=== PATIENT | male | born 1955 | race Caucasian/White ===

== ENCOUNTER 2020-10-12 09:58 | Outpatient (REF) | payer MEDICARE, SELFPAY | END 2020-10-12 09:59 | disposition home or self-care (01) | LOC: HO.LAB 09:58 | PROVIDERS: Visit Provider Internal Medicine | DX: Z20.828 Contact with and (suspected) exposure to other viral communicable diseases (principal) | CPT/HCPCS: C9803; U0003 ==

== ENCOUNTER → 2022-09-05 11:00 | Outpatient (BNVA) | payer MEDICARE, SELFPAY | PROVIDERS: PCP Internal Medicine; Visit Provider Nurse Practitioner Family | DX: Z01.818 Encounter for other preprocedural examination (principal) | CPT/HCPCS: 99202 ==

== ENCOUNTER 2023-01-24 06:56 | Day surgery (SDC) | payer BC, SELFPAY ==
[2023-01-18 15:10] VITALS: BMI 25.7
--- NOTE | 2023-01-23 11:59 | P.CONAN_ITS ---
Documented by User: Mildred Gold NP 01/23/23 11:59 HPI - Anesthesia Eval Consult details Narrative: 67yo M for Colonoscopy [facility] Past Medical History Medical History Diabetes Elevated cholesterol Family History Family History (Updated 09/05/22 @ 11:07 by Casey Eng) Mother Diabetes Surgical History Surgical History Hx of colonoscopy Social History Social History (Updated 09/05/22 @ 11:06 by Casey Eng) Household Members: Significant Other Alcohol intake: current Patient Tobacco Use Status: Never used Tobacco Meds Allergies Allergy/AdvReac Type Severity Reaction Status Date / Time No Known Allergies Allergy Verified 01/24/23 07:16 Home Medications Medication Instructions Recorded Confirmed Last Taken Type atorvastatin 10 mg tablet 10 mg PO DAILY 09/05/22 01/18/23 Unknown History empagliflozin 10 mg tablet 10 mg PO DAILY 09/05/22 01/18/23 Unknown History (Jardiance) flash glucose sensor (FreeStyle #1 ea 09/05/22 Unknown History Lavelle 2 Sensor kit) lisinopril 5 mg tablet 5 mg PO DAILY 09/05/22 01/18/23 Unknown History metformin 500 mg tablet 1,000 mg PO BID 09/05/22 01/18/23 Unknown History Exam Exam Date and Time: January 23, 2023 115 Height,Weight and Vital Signs: Height 6 ft Weight 86.183 kg Assessment and Plan Assessment Anesthesia Assessment: Chart Reviewed Documented by User: Brian Childers MD 01/24/23 16:22 [facility] Past Medical History Medical History Diabetes Elevated cholesterol Functional capacity: independent ambulation Family History Family History (Updated 09/05/22 @ 11:07 by Casey Eng) Mother Diabetes Family history of problems with anesthesia: No Surgical History Surgical History Hx of colonoscopy History of Problems with Anesthesia: No Social History Social History (Updated 09/05/22 @ 11:06 by Casey Eng) Household Members: Significant Other Alcohol intake: current Patient Tobacco Use Status: Never used Tobacco Meds Allergies Allergy/AdvReac Type Severity Reaction Status Date / Time No Known Allergies Allergy Verified 01/24/23 07:16 Home Medications Medication Instructions Recorded Confirmed Last Taken Type atorvastatin 10 mg tablet 10 mg PO DAILY 09/05/22 01/18/23 Unknown History empagliflozin 10 mg tablet 10 mg PO DAILY 09/05/22 01/18/23 Unknown History (Jardiance) flash glucose sensor (FreeStyle #1 ea 09/05/22 Unknown History Lavelle 2 Sensor kit) lisinopril 5 mg tablet 5 mg PO DAILY 09/05/22 01/18/23 Unknown History metformin 500 mg tablet 1,000 mg PO BID 09/05/22 01/18/23 Unknown History Exam Airway Mallampati Class: III TM Dist: >3cm Neck ROM: Full Loose/Missing/Broken Teeth: Yes (Left upper loose , upper front chipped) Heart: S1,S2 Lungs: b/l breath sounds Assessment and Plan Assessment Anesthesia Assessment: Anesthesia Plan Discussed Final Anesthetic Review Family History of Problems with Anesthesia: No History of Problems with Anesthesia: No NPO: Yes ASA Class: II Final Preanesthetic Review: Meds/Allgs Chart Reviewed, Consent Obtained/Reviewed and Anes Risks/Benef Reviewed Patient Risk: Intermediate Procedure Risk: Intermediate Anesthetic Plan Anesthetic Plan: MAC: Disposition: Standard PACU
[2023-01-24 07:45] VITALS: BP 120/77; PULSE 90; RESP 15; TEMP 36.3; O2SAT 96
[2023-01-24] MEDS: Lactated Ringers 1,000 ML 100 ML IVCONT (07:47)
[2023-01-24 07:53] LABS: Glucose, Whole Blood 140 mg/dL (60-115)
--- NOTE | 2023-01-24 08:37 | MHC.SHP ---
Pre-Procedural Eval Section A Date of Service: 01/24/23 Section B Chief Complaint: screening Relevant Family History (Specify if Yes): No Relevant Social History: None Present Medications: see Short Stay Collaborative assessment Medical History: Significant History (dm, htn, hlp, colon polyps) History of Previous Operations: Relevant previous surgery/procedure and date(s) (Hx of colonoscopy) Allergies: Allergies Allergy/AdvReac Type Severity Reaction Status Date / Time No Known Allergies Allergy Verified 01/24/23 07:16 Review of Systems Sugical H&P ROS: Negative: Constitution, Cardiovascular, Respiratory, Neurological, Psychiatric, Hem-Onc, Allergic/Immunologic, Gastrointestinal, Genitourinary, Musculoskeletal, Integumentary, Endocrine and Eyes/Ears/Nose/Throat Exam Surgical H&P Exam: Normal: HEENT, Normal: Heart, Normal: Lungs, Normal: Extremities, Normal: Abdomen, Normal: Skin and Normal: Neurological Plan Diagnosis/Plan: Unchanged I have reviewed the history and physical and performed a pertinent physical examination on my patient. No changes have occurred unless specified. Time Spent With Patient Time: Total time managing care of this patient today ____ minutes.
--- NOTE | 2023-01-24 08:38 | W.PM.OPN ---
Operative Note Operative Note Date of Service: 01/24/23 Narrative: Operative Information Procedure Description: Colonoscopy Indication: screening Anesthesia: MAC COLONOSCOPY Instrument: Olympus variable stiffness pediatric scope 190L Colonoscopy Monitoring: Vital signs and clinical assessment, continuous EKG monitoring, Pulse oximetry, Carbon Dioxide monitoring and blood pressure monitoring were done throughout the procedure. Colon withdrawal time was 12 minutes. Procedure: The patient was placed in the left lateral decubitis position and pre-procedure medications were administered. After a digital rectal examination of the ano-rectum, the video colonoscope was inserted into the rectum and advanced through the colon to the cecum/TI. The colonoscope was slowly withdrawn in a retrograde panoramic fashion and the colon mucosa was carefully examined including a retroflexed view of the rectum. Findings and interventions are described below. Procedure Difficulty: easy Findings: Terminal Ileum-normal Cecum: x 2 sessile polyps noted measuring 6-10 mm, one removed with cold snare and the other with cold forceps Ascending Colon: normal Transverse Colon -normal Descending Colon: 10 mm sessile polyp removed with cold snare Sigmoid Colon: mild diverticulosis Rectum: Retroflexion with small internal hemorrhoids, grade I with skin tags, 10 mm sessile polyp removed with cold snare Anorectum - normal Colon preparation: [place] Bowel Preparation Scale Right colon; 2 Transverse colon: 3 Left colon; 3 (0 = Unprepared colon segment with mucosa not seen due to solid stool that cannot be cleared. 1 = Portion of mucosa of the colon segment seen, but other areas of the colon segment not well seen due to staining, residual stool and/or opaque liquid. 2 = Minor amount of residual staining, small fragments of stool and/or opaque liquid, but mucosa of colon segment seen well. 3 = Entire mucosa of colon segment seen well with no residual staining, small fragments of stool or opaque liquid) Impression and Post Procedure Diagnosis: polyps internal hemorrhoids diverticular disease Plan: High fiber diet leaflet Avoid straining at stool, epsom salts and sitz bath, anusol supps or cream Repeat Colonoscopy in 2-3 years due to polyps or earlier if clinically indicated Above findings were reviewed with the patient and relevant handouts were provided if indicated.
[2023-01-24 09:09] VITALS: BP 109/66; PULSE 90; RESP 16; TEMP 36.4; O2SAT 98
[2023-01-24 09:28] VITALS: BP 121/78; PULSE 81; RESP 14; TEMP 36.4; O2SAT 97
== END 2023-01-24 09:50 | disposition home or self-care (01) ==
PROVIDERS: PCP Internal Medicine; Visit Provider Internal Medicine Gastroenterology
PROC: 0DJD8ZZ Inspection of Lower Intestinal Tract, Via Natural or Artificial Opening Endoscopic (ICD-10-PCS; CPT 45378; principal; 2023-01-24 08:30)
DX: Z12.11 Encounter for screening for malignant neoplasm of colon (principal); Z86.010 Personal history of colon polyps; D12.0 Benign neoplasm of cecum; D12.4 Benign neoplasm of descending colon; K62.1 Rectal polyp; K57.30 Diverticulosis of large intestine without perforation or abscess without bleeding; K64.0 First degree hemorrhoids; K64.4 Residual hemorrhoidal skin tags; I10 Essential (primary) hypertension; E78.00 Pure hypercholesterolemia, unspecified; E11.9 Type 2 diabetes mellitus without complications; Z79.84 Long term (current) use of oral hypoglycemic drugs; Z79.899 Other long term (current) drug therapy
CPT/HCPCS: 45385; 45380; 82947; 88305